=== PATIENT | female | born 1975 | race Caucasian/White ===

== ENCOUNTER 2017-08-08 11:19 | Emergency (ER) | payer OTHER ==
--- NOTE | 2017-08-08 11:39 | EDPHY ---
H & P Stated Complaint: pt came to recovery center from [place] psych prob and benzo use Time Seen by Provider: 08/08/17 11:32 HPI/ROS: HPI: This is a 41-year-old female who presents with Chief Complaint: pt came to recovery center from [place] psych prob and benzo use Location:psych Quality: Racing thoughts Duration: A few days Signs and Symptoms: no auditory hallucinations, no visual hallucinations, no suicidal ideation with a plan, no homicidal ideation, no paranoia Timing: Acute on chronic Severity: Moderate to severe Context: Patient has a history of bipolar disorder as well as by and so as a Pean overuse presents from the [facility] detox center this afternoon accompanied by to employees with concerns of benzo withdrawal and requesting mental health evaluation. Patient admits to racing thoughts, insomnia, labile emotions and inability to function and like. She had been on Seroquel, abuse bar, lithium in the past for her bipolar disorder but she has not had any of these medications greater than 6 months. She was being treated for generalized anxiety disorder taking Ativan 1 mg twice a day and then Valium at night to go to sleep. Her last benzodiazepine use was which is 4 days ago. She denies any tremors, nausea, vomiting, headaches, abdominal pain. Her mother range for her to go to detox. She is originally from [place]. Modifying Factors: None Comment: ROS: see HPI Constitutional: No fever, no chills, no weight loss Eyes: No blurred vision Respiratory: No shortness of breath, no cough Cardiovascular: No chest pain Gastrointestinal: No nausea, no vomiting, no diarrhea Genitourinary: No dysuria Extremities: No myalgias Neurologic: No weakness, no numbness Skin: No rashes Hematologic: No bruising, no bleeding MEDICAL/SURGICAL/SOCIAL HISTORY: Medical history: Bipolar disorder, benzodiazepine overuse Surgical history: Denies Social history: Originally from [place]. Tobacco user. Family history noncontributory. CONSTITUTIONAL: Untidy, cooperative middle-aged white female awake and alert, no obvious distress HEENT: Atraumatic and normocephalic, PERRL, EOMI. Nares patent; no rhinorrhea; no nasal mucosal edema. Tympanic membranes clear. Oropharynx clear, no exudate and moist pink mucosa. Airway patent. No lymphadenopathy. No meningismus. Cardiovascular: Normal S1/S2, regular rate, regular rhythm, without murmur rub or gallop. PULMONARY/CHEST: Symmetrical and nontender. Clear to auscultation bilaterally. Good air movement. No accessory muscle usage. ABDOMEN: Soft, nondistended, nontender, no rebound, no guarding, no peritoneal signs, no masses or organomegaly. No CVAT. EXTREMITIES: 2/2 pulses, strength 5/5, no deformities, no clubbing, no cyanosis or edema. NEUROLOGICAL: no focal neuro deficits. GCS 15. SKIN: Warm and dry, no erythema. no rash. Good capillary refill. PSYCH: Poor eye contact, + flight of ideas, relatively organized thought process , fair insight and judgment, no auditory hallucinations, no visual hallucinations, no suicidal ideation with a plan, no homicidal ideation, no paranoia Source: Patient Exam Limitations: No limitations - Personal History LMP (Females 10-55): Now Current Tetanus/Diphtheria Vaccine: Yes - Medical/Surgical History Hx Asthma: No Hx Chronic Respiratory Disease: No Hx Diabetes: No Hx Cardiac Disease: No Hx Renal Disease: No Hx Cirrhosis: No Hx Alcoholism: No Hx HIV/AIDS: No Hx Splenectomy or Spleen Trauma: No Other PMH: ?bipolar/anxiety - Social History Smoking Status: Current every day smoker Constitutional: Initial Vital Signs Temperature (C) 36.6 C 08/08/17 11:22 Heart Rate 92 08/08/17 11:22 Respiratory Rate 18 08/08/17 11:22 Blood Pressure 160/133 H 08/08/17 11:22 O2 Sat (%) 96 08/08/17 11:22 O2 Delivery Mode Room Air Allergies/Adverse Reactions: No Known Allergies Allergy (Unverified 08/08/17 11:21) Home Medications: Medication Instructions Recorded NK [No Known Home Meds] 08/08/17 Medical Decision Making ED Course/Re-evaluation: Patient is voluntary and will not be placed on M1 hold her detainer. Labs and UDS ordered for mental health evaluation. Patient clearly has uncontrolled bipolar disorder and is manic. Zyprexa 5 mg given. She is clinically not presenting with signs of benzodiazepine withdrawal. 1243: Labs reviewed. Grossly unremarkable. Urine drug screen positive for benzodiazepine. Medically clear for mental health evaluation. 1330: TLC notified. 1340: TLC at bedside. 1522: TLC recommends discharge back to [facility]. Patient has no psychotic features. Does not meet M1 hold or Detainer criteria. This patient was seen under the supervision of my secondary supervising physician. I evaluated care for this patient independently. Discussed this patient with Dr. Hanna who did not see the patient. Differential Diagnosis: Differential diagnosis includes but is not limited to bipolar disorder, manic episode, psychosis, intoxicated use, suicidal ideation, homicidal ideation. - Data Points Laboratory Results: Laboratory Results 08/08/17 12:00 08/08/17 12:00 08/08/17 08/08/17 08/08/17 12:00 12:00 12:00 WBC RBC Hgb Hct MCV MCH MCHC RDW Plt Count MPV Neut % (Auto) Lymph % (Auto) [place] % (Auto) Eos % (Auto) Baso % (Auto) Nucleat RBC Rel Count Absolute Neuts (auto) Absolute Lymphs (auto) Absolute Monos (auto) Absolute Eos (auto) Absolute Basos (auto) Absolute Nucleated RBC Immature Gran % Immature Gran # Sodium 137 mEq/L mEq/L (135-145) Potassium 4.7 mEq/L mEq/L (3.3-5.0) Chloride 102 mEq/L mEq/L (97-110) Carbon Dioxide 22 mEq/l mEq/l (22-31) Anion Gap 13 mEq/L mEq/L (8-16) BUN 7 mg/dL mg/dL (7-23) Creatinine 0.6 mg/dL mg/dL (0.6-1.0) Estimated GFR > 60 Glucose 100 mg/dL mg/dL (70-100) Calcium 9.9 mg/dL mg/dL (8.5-10.4) Beta HCG, Qual NEGATIVE Urine Opiates Screen NEGATIVE (NEGATIVE) Urine Barbiturates NEGATIVE (NEGATIVE) Ur Phencyclidine Scrn NEGATIVE (NEGATIVE) Ur Amphetamine Screen NEGATIVE (NEGATIVE) U Benzodiazepines Scrn NON-NEGATIVE H (NEGATIVE) Urine Cocaine Screen NEGATIVE (NEGATIVE) U Marijuana (THC) Screen NEGATIVE (NEGATIVE) Ethyl Alcohol < 10 mg/dL mg/dL (0-10) 08/08/17 12:00 WBC 10.97 10^3/uL H 10^3/uL (3.80-9.50) RBC 5.47 10^6/uL H 10^6/uL (4.18-5.33) Hgb 13.6 g/dL g/dL (12.6-16.3) Hct 42.7 % % (38.0-47.0) MCV 78.1 fL L fL (81.5-99.8) MCH 24.9 pg L pg (27.9-34.1) MCHC 31.9 g/dL L g/dL (32.4-36.7) RDW 17.2 % H % (11.5-15.2) Plt Count 459 10^3/uL H 10^3/uL (150-400) MPV 9.3 fL fL (8.7-11.7) Neut % (Auto) 65.1 % % (39.3-74.2) Lymph % (Auto) 27.9 % % (15.0-45.0) [place] % (Auto) 5.0 % % (4.5-13.0) Eos % (Auto) 1.2 % % (0.6-7.6) Baso % (Auto) 0.5 % % (0.3-1.7) Nucleat RBC Rel Count 0.0 % % (0.0-0.2) Absolute Neuts (auto) 7.15 10^3/uL H 10^3/uL (1.70-6.50) Absolute Lymphs (auto) 3.06 10^3/uL H 10^3/uL (1.00-3.00) Absolute Monos (auto) 0.55 10^3/uL 10^3/uL (0.30-0.80) Absolute Eos (auto) 0.13 10^3/uL 10^3/uL (0.03-0.40) Absolute Basos (auto) 0.05 10^3/uL 10^3/uL (0.02-0.10) Absolute Nucleated RBC 0.00 10^3/uL 10^3/uL (0-0.01) Immature Gran % 0.3 % % (0.0-1.1) Immature Gran # 0.03 10^3/uL 10^3/uL (0.00-0.10) Sodium Potassium Chloride Carbon Dioxide Anion Gap BUN Creatinine Estimated GFR Glucose Calcium Beta HCG, Qual Urine Opiates Screen Urine Barbiturates Ur Phencyclidine Scrn Ur Amphetamine Screen U Benzodiazepines Scrn Urine Cocaine Screen U Marijuana (THC) Screen Ethyl Alcohol Medications Given: Discontinued Medications Olanzapine (Olanzapine) 5 mg PO ONCE ONE Stop: 08/08/17 11:48 Last Admin: 08/08/17 12:13 Dose: 5 mg Departure - Departure Disposition: Home, Routine, Self-Care Clinical Impression: Benzodiazepine abuse Bipolar disorder (manic depression) Qualifiers: Active/Remission status: currently active Current bipolar episode type: mixed Current episode severity: moderate Qualified Code(s): F31.62 - Bipolar disorder , current episode mixed, moderate Condition: Good Instructions: Benzodiazepine Abuse (ED), Bipolar Disorder (ED) Additional Instructions: Call 911 if you have thoughts of hurting or killing yourself or anyone else, or have any new or worsening symptoms that concern you. Referrals: [facility],. [Clinic] - As per Instructions
[2017-08-08] MEDS ORDERED: OLANZapine 5 MG TAB ONE (11:45)
[2017-08-08] MEDS ORDERED: OLANZapine 5 MG TAB PO ONE (11:47)
[2017-08-08 12:22] LABS: PLATELET COUNT 459 10^3/uL (150-400)
[2017-08-08 15:22] VITALS: BP 148/99
--- NOTE | 2017-08-08 18:16 | ASDISCHSUM ---
Discharge Information Plan Status:Detention Medically Cleared to Leave: Discharge Date:08/08/2017 03:30 PM CM D/C Disposition: ADT D/C Disposition:Home, Routine, Self-Care Projected Discharge Date:08/08/2017 04:00 PM Transportation at D/C: Discharge Delay Reason: Follow-Up Date:08/08/2017 04:00 PM Discharge Slot: Final Diagnosis: Placement Information Patient Contact Information Contact Name:NALINI Relationship:Mother Address: Home Phone: City: [facility] Phone: [facility]/Zip Code: Email: Financial Information Financial Class:Commercial [facility] Primary Plan Number:[id number] Secondary Plan Desc: Secondary Plan Number: Assessment Information TLC Progress Note Notes Note: Notes: Spoke with Clayton at [facility] who confirmed pt is not active with [facility]. [facility] will conduct the eval. Date Signed: 08/08/2017 02:50 PM Electronically Signed By:Jaye Santizo TLC Evaluation TLC Evaluation - Basic Information Evaluation Start Date and 08/08/2017 01:30 PM Time Hospital Status Answers: Voluntary 72-hr M1 Hold Start Date 08/08/2017 01:30 PM and Time Patient statement Notes: "I'm here for bipolar." Narrative Notes: Pt is a 41 year old female who presented voluntarily. Pt is currently in tx at the [facility] for benzo dependence/abuse and the treatment team became concerned that pt could be in W/D so they brought pt here for med clearance. Pt lives in [place] and her mother found this tx center and encouraged pt to come out here and get into tx.. Pt stated she has been depressed for the past year after her son went off to college. Pt stated she has been having difficulty getting out of bed, taking care of her responsibilities and is lacking motivation to do anything. Pt states she is able to keep it together during the day but at night she feels like she struggles the most. Pt stated her 15 year old daughter no longer wants to live with her and has chosen to go and stay with her SOC. Pt states her 9 year old daughter lives with her and she worries she is not being the kind of mom she should be. Pt denies SI and stated, "I don't want to , I love life, I just want to get better." Diagnosis History Notes: Pt states she was dx with Bipolar disorder in 2011. Prior suicide attempts Notes: Pt denies any prior suicide attempts. Prior hospitalizations Notes: Pt stated she has been in 2 different crisis stabilizations units in [place] where she stayed 5 days each. Pt's most recent hospitalization was 2-3 years ago and before that, it was in 2012. Treatment Responses Notes: Unknown History of violence Notes: Pt denied any hx of violence. Medications (name, dosage, route, freq uency) Notes: Pt is currently on Lexapro 20 mg; phentamine 37.5; Pt reports being prescribed valium and Xanax 1 mg. but per therapist at [facility], they do not have a record of Valium and report that pt is no longer taking Xanax as of 4 days ago. Allergies/Reaction Notes: NKA Sleep Notes: Pt reports her sleep as erratic and stated, " Some days I can go without sleep and other days I want to sleep all the time." Appetite Notes: Wnl Medical/Surgical history Notes: None reported Substance use history (frequency, intensity, his tory, duration) Notes: Pt denies any illegal substances and occasional ETOH use. Pt is in tx for benzodiazapene abuse. Pt reports she has been on bennzo's for 10 years. Pt did not discuss her benzodiazapene use/abuse with this sheet writer. Utox positive for benzodiazapenes. Negative for all other substances. BAL was .0. Need for family Answers: No participation in patient's care Family psychiatric/substance abuse history Notes: Pt denies any family hx of family psychiatric/substance abuse hx. Developmental history Notes: Pt grew up in [place] and reports having a good childhood. Pt denied a ADD/ADHD dx, denied any concussions. Abuse concerns Answers: None Marital status/children Notes: Pt is and has 3 children, ages 20, 15 nd 9. Pt's 20 year old son is in college. Her 15 year old daughter is living with her sister temporarily due to conflict in the home. Pt's 9 year old daughter lives with her at home. Living situation Notes: Pt lives in [place]. Sexual history/orientation Notes: Pt is heterosexual. Peer support/family strengths Notes: Pt stated, " I don't have any friends. Just a couple of work friends." Education level/history Notes: Pt has a B.A in Education. Work history Notes: Pt has been teaching kindergarten for 9 years. Notes: None Legal Notes: Pt denied any legal problems. Nondenominational/Spiritual Notes: None that would intefere with tx. Leisure Notes: Pt enjoys reading. Collateral Notes: Maxi from [facility] TLC Evaluation - Mental Status Exam Appearance: Answers: Appropriate Eye Contact: Answers: Good/Direct Mood: Answers: Labile Affect: Answers: Labile Tearful Behavior: Answers: Cooperative Speech: Answers: Relevant Pressured Slurred Thought Process: Answers: Racing Thoughts Insight: Answers: Good Judgement: Answers: Fair Manic Signs/Symptoms Answers: Pressured Speech Racing Thoughts Depression Answers: Diminished Interest Signs/Symptoms: Diminished Pleasure Sad Mood Anxiety Signs/Symptoms Answers: Generalized Anxiety Hallucinations: Answers: None Current Stage of Change Answers: Contemplation Pt reported to have Answers: No suicidal/self-injuring ideation/behavior? Pt reported to be making Answers: No suicidal/self-injuring threats? Pt reported to have Answers: No aggression/assault ideation/behavior? Pt reported to be making Answers: No aggression/assault threats? Pt exhibits inability to Answers: No care for self/grave disability? Ideation/behavior is Answers: No chronic? Patient has a specific Answers: No plan? History of Answers: No suicidal/self-injuring ideation, behavior, or threats? History of Answers: No aggressive/assaultive ideation, behavior, or threats? History of serious Answers: No physical harm to self/others while in treatment setting? TLC Evaluation - Suicide/Homicide Risk Suicide Risk Factors: Answers: < 20 or > 40 Years of Age Alcohol/Heavy Drug Use Bipolar Disorder Financial Difficulties Inadequate Social Support Major Depression Homicide/violence risk Answers: None factors: Current Suicidal Answers: No Ideation? Current Suicidal Ideation Answers: No in the Past 48 Hours? Current Suicidal Ideation Answers: No in the Past Month? Current Suicidal Answers: No Ideation, Worst Ever? Suicide Internal Answers: Frustration Tolerance Protective Factors: Suicide External Answers: Responsibility to Protective Factors: Children Ranking of patient's Answers: Low suicidal risk: Ranking of patient's Answers: Low homicidal risk: TLC Evaluation - Wrap-up BDI Total Score: 45 BDI Question #2 Score: 2 BDI Question #9 Score: 0 BSS Total Score: 0 AXIS I Diagnosis (include DSM-V and ICD-10 codes), must also be entered in [employer] [place], which is the source of truth. Notes: BIPOLAR I DISORDER, SEVERE 296.43 (F31.13) SEDATIVE, HYPNOTIC, OR ANXIOLYTIC-RELATED DISORDER, SEVERE 304.10 (F13.20) In consultation with [facility] ED physician, Darrel Hanna MD and on-call psychiatrist, Jasmeet Michaud APN, both concurred that pt does not appear to meet 27-65 criteria requiring psychiatric hospitalization as pt does not appear to be at risk of harm to self/others/gravely disabled due to a mental illness condition. Evaluation End Date and 08/08/2017 06:00 PM Time (HH:SEPIDEH): Date Signed: 08/08/2017 06:14 PM Electronically Signed By:Jaye Santizo Intervention Information
--- NOTE | 2017-08-08 18:18 | ASMTTCLDSP ---
TLC Discharge Disposition Disposition: Answers: Discharge Disposition Notes: Notes: Pt discharged back to the [facility]. Staff member Sujata came to strip picker pt. Pt was given [employer]SHA brochure and [facility] brochure and crisis numbers. Discharge Concerns/Recommendations: Notes: In consultation with [facility] ED physician, Darrel Hanna MD and on-call psychiatrist, Jasmeet Michaud APN, both concurred that pt does not appear to meet 27-65 criteria requiring psychiatric hospitalization as pt does not appear to be at risk of harm to self/others/gravely disabled due to a mental illness condition. Was patient given the Answers: Not applicable Inpatient Behavioral Health Prohibited Belongings List while in the ED? Date and time M1 hold 08/08/2017 04:00 PM vacated (time format is hh:mm): Date Signed: 08/08/2017 06:18 PM Electronically Signed By:Jaye Santizo
== END 2017-08-08 15:30 | disposition home or self-care (01) ==
PROC: GZ11ZZZ Psychological Tests, Personality and Behavioral (ICD-10-PCS; principal; 2017-08-08)
DX: F31.62 Bipolar disorder, current episode mixed, moderate (principal); F13.10 Sedative, hypnotic or anxiolytic abuse, uncomplicated; F17.200 Nicotine dependence, unspecified, uncomplicated
CPT/HCPCS: 80305; G0480